=== PATIENT | female | born 1945 | race Caucasian/White ===

== ENCOUNTER 2018-12-20 12:54 | Emergency (ER) | payer MEDICARE, MEDICAID ==
[~2018-12-20] VITALS: Ht 167.6 cm; Wt 80.8 kg
[~2018-12-20 12:54] MED LIST: ALBU8HFA PO; AMLO2.5T4 PO; ATOR40TA PO; ESOM5SUS PO; FLUO20CA39 PO; IRON18TA PO; LEVO75TA57 PO; LISI-600 PO; MORP60CA18 PO; VIT1CAPS46 PO; ZOLP-183 PO
[2018-12-20 13:14] VITALS: BP 144/79
[2018-12-20] MEDS ORDERED: acetaminophen 325mg tablet PO ONE (13:35)
--- NOTE | 2018-12-20 13:46 | NUR ---
UNABLE TO PROVIDE URINE AT THIS TIME, WATER TO DRINK GIVEN
[2018-12-20 14:27] LABS: BASOPHILS # (AUTO) 0.1 X10'3 (0-0.2); BASOPHILS % (AUTO) 0.9 % (0-1); EOSINOPHILS # (AUTO) 0.2 X10'3 (0-0.9); EOSINOPHILS % (AUTO) 3.8 % (0-6); HEMATOCRIT 35.6 % (35.0-45.0); HEMOGLOBIN 12.4 g/dl (12.0-16.0); LYMPHOCYTES # (AUTO) 0.9 X10'3 (1.1-4.8); LYMPHOCYTES % (AUTO) 14.6 % (21-51); MEAN CORPUSCULAR HEMOGLOBIN 31.8 PG (27.0-31.0); MEAN CORPUSCULAR HGB CONC 34.8 g/dL (33.0-36.5); MEAN CORPUSCULAR VOLUME 91.4 FL (78-98); MEAN PLATELET VOLUME 9.6 FL (7.4-10.4); MONOCYTES # (AUTO) 0.5 X10'3 (0-0.9); MONOCYTES % (AUTO) 7.7 % (2-12); NEUTROPHILS # (AUTO) 4.5 X10'3 (1.8-7.7); PLATELET COUNT 204 X10'3 (140-440); RED BLOOD COUNT 3.89 X10'6 (4.20-5.60); RED CELL DISTRIBUTION WIDTH 13.4 % (11.5-14.5); WHITE BLOOD COUNT 6.1 X10'3 (4.5-11.0)
[2018-12-20 14:32] LABS: PARTIAL THROMBOPLASTIN TIME 29 SECONDS (22-32)
--- NOTE | 2018-12-20 14:42 | NUR ---
unable to provide urine, more water provided, requeste to wait on straight cath
[2018-12-20 14:44] LABS: ALANINE AMINOTRANSFERASE 26 U/L (12-78); ALBUMIN 4.1 G/DL (3.4-5.0); ALBUMIN/GLOBULIN RATIO 1.3 (1.1-1.5); ALKALINE PHOSPHATASE 80 IU/L (46-116); ANION GAP 9 (8-16); ASPARTATE AMINO TRANSFERASE 17 U/L (10-37); BILIRUBIN,TOTAL 0.4 MG/DL (0.1-1.0); BLOOD UREA NITROGEN 26 MG/DL (7-18); BUN/CREATININE RATIO 20.5 (6.6-38.0); CALCIUM 9.5 MG/DL (8.5-10.1); CHLORIDE 108 MMOL/L (99-107); CREATININE 1.27 MG/DL (0.40-0.90); GLUCOSE 96 MG/DL (70-104); MAGNESIUM 2.2 MG/DL (1.5-2.4); POTASSIUM 4.1 MMOL/L (3.5-5.1); SODIUM 144 MMOL/L (135-145); TOTAL CARBON DIOXIDE 26.7 MMOL/L (24-32); TOTAL PROTEIN 7.3 G/DL (6.4-8.2); eGFR 41 ML/MIN
[2018-12-20 15:36] LABS: CLARITY,URINE CLOUDY (Clear); COLOR,URINE YELLOW (Yellow); GLUCOSE, URINE NEGATIVE (Neg); KETONES,URINE NEGATIVE (Neg); LEUKOCYTE ESTERASE ,URINE LARGE (Neg); NITRITES, URINE NEGATIVE (Neg); OCCULT BLOOD,URINE TRACE-INTACT (Neg); PROTEIN,URINE TRACE mg/dl (Neg); UA COLLECTION TYPE CLN CATCH MIDSTREAM; UROBILINOGEN,URINE 0.2 E.U/dL (0.2-1.0)
--- NOTE | 2018-12-20 15:45 | NUR ---
JYOTHI U/S IN ROOM
[2018-12-20 15:48] LABS: BACTERIA,URINE 3+ /HPF (Neg); MUCUS STRANDS FEW /LPF (Neg); RBC,URINE 0-2 /HPF (0-2); RENAL CELLS, URINE MANY /HPF; SQUAMOUS EPITHELIAL CELL,UR MANY /LPF (FEW); WBC CLUMPS,URINE MODERATE /HPF (NEGATIVE); WBC,URINE 50-100 /HPF (0-4)
[2018-12-20] MEDS ORDERED: CIPR-230 PO (16:14)
[2018-12-20] MEDS ORDERED: CefTRIAXone 1000mg IM Kit (w/lidocaine diluent) IM ONE (16:15)
[2018-12-20] MEDS ORDERED: ciprofloxacin 250mg tablet PO ONE (16:15)
== END 2018-12-20 16:42 | disposition home or self-care (01) ==
LOC: ER 12:55
DX: N39.0 Urinary tract infection, site not specified (principal); M79.604 Pain in right leg; E78.00 Pure hypercholesterolemia, unspecified; I10 Essential (primary) hypertension; K21.9 Gastro-esophageal reflux disease without esophagitis; E07.9 Disorder of thyroid, unspecified; F31.9 Bipolar disorder, unspecified; Z90.710 Acquired absence of both cervix and uterus; Z88.5 Allergy status to narcotic agent; Z79.899 Other long term (current) drug therapy; Z88.8 Allergy status to other drugs, medicaments and biological substances; Z79.2 Long term (current) use of antibiotics; Z98.890 Other specified postprocedural states
CPT/HCPCS: 36415; 71045; 80053; 81001; 83605; 83735; 84145; 85025; 85610; 85730; 87040; 93005; 93971; 96372; 99284; J0696

== ENCOUNTER 2019-05-20 17:38 | Emergency (ER) | payer MEDICARE, MEDICAID ==
[~2019-05-20] VITALS: Ht 167.6 cm; Wt 82.0 kg
[2019-05-20 18:18] LABS: BASOPHILS # (AUTO) 0.1 X10'3 (0-0.2); BASOPHILS % (AUTO) 0.9 % (0-1); EOSINOPHILS # (AUTO) 0.3 X10'3 (0-0.9); EOSINOPHILS % (AUTO) 5.3 % (0-6); HEMOGLOBIN 11.7 g/dl (12.0-16.0); LYMPHOCYTES # (AUTO) 1.2 X10'3 (1.1-4.8); LYMPHOCYTES % (AUTO) 18.7 % (21-51); MEAN CORPUSCULAR HEMOGLOBIN 32.4 PG (27.0-31.0); MEAN CORPUSCULAR HGB CONC 35.5 g/dL (33.0-36.5); MEAN CORPUSCULAR VOLUME 91.4 FL (78-98); MEAN PLATELET VOLUME 8.9 FL (7.4-10.4); MONOCYTES # (AUTO) 0.6 X10'3 (0-0.9); MONOCYTES % (AUTO) 9.8 % (2-12); NEUTROPHILS # (AUTO) 4.1 X10'3 (1.8-7.7); NEUTROPHILS % (AUTO) 65.3 % (42-75); PLATELET COUNT 195 X10'3 (140-440); RED BLOOD COUNT 3.61 X10'6 (4.20-5.60); RED CELL DISTRIBUTION WIDTH 13.2 % (11.5-14.5); WHITE BLOOD COUNT 6.2 X10'3 (4.5-11.0)
[2019-05-20 18:32] LABS: ALANINE AMINOTRANSFERASE 31 U/L (12-78); ALBUMIN 4.1 G/DL (3.4-5.0); ALBUMIN/GLOBULIN RATIO 1.4 (1.1-1.5); ALKALINE PHOSPHATASE 87 IU/L (46-116); ANION GAP 7 (8-16); ASPARTATE AMINO TRANSFERASE 19 U/L (10-37); BILIRUBIN,TOTAL 0.3 MG/DL (0.1-1.0); BLOOD UREA NITROGEN 37 MG/DL (7-18); BUN/CREATININE RATIO 28.9 (6.6-38.0); CALCIUM 9.5 MG/DL (8.5-10.1); CHLORIDE 107 MMOL/L (99-107); CREATININE 1.28 MG/DL (0.40-0.90); GLUCOSE 95 MG/DL (70-104); POTASSIUM 3.8 MMOL/L (3.5-5.1); SODIUM 143 MMOL/L (135-145); TOTAL CARBON DIOXIDE 29.3 MMOL/L (24-32); eGFR 41 ML/MIN
[2019-05-20 18:39] LABS: MAGNESIUM 2.4 MG/DL (1.5-2.4)
[2019-05-20] MEDS ORDERED: normal saline 1000ML IV soln IVB ONE (19:10)
[2019-05-20] MEDS ORDERED: iohexol 350MG/ML 100ml bottle IV ONE (19:12)
--- NOTE | 2019-05-20 19:18 | NUR ---
PT TO HAVE CT W/CONTRAST FOR POSS PE. AWAITING PIV PLACEMENT. PT WITH STABLE VS AND RA SATS 98%, RR 18 AND UNLABORED. SHE REPROTS SHE FEEL SOB JUST LYING IN THE GURNEY. 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 OVER THE PAST 3 WEEKS HAS BEEN HAVING INCREASED PAIN IN THIS AREA.
[2019-05-20 20:34] VITALS: BP 139/72
== END 2019-05-20 20:40 | disposition home or self-care (01) ==
LOC: ER 17:38
DX: R06.02 Shortness of breath (principal); R07.89 Other chest pain; R53.83 Other fatigue; E78.00 Pure hypercholesterolemia, unspecified; I10 Essential (primary) hypertension; K21.9 Gastro-esophageal reflux disease without esophagitis; Z98.890 Other specified postprocedural states; Z90.710 Acquired absence of both cervix and uterus; Z88.8 Allergy status to other drugs, medicaments and biological substances; Z88.5 Allergy status to narcotic agent; Z79.899 Other long term (current) drug therapy
CPT/HCPCS: 36415; 71045; 71275; 80053; 83735; 83880; 84484; 85025; 85379; 93005; 99284; J7030; Q9967

== ENCOUNTER 2020-05-21 20:03 | Emergency (ER) | payer MEDICARE, MEDICAID ==
[~2020-05-21] VITALS: Ht 167.6 cm; Wt 77.2 kg
[2020-05-21] MEDS ORDERED: meclizine 12.5mg tablet PO ONE (20:30)
--- NOTE | 2020-05-21 20:47 | NUR ---
yossi reports having vertigo 30 years ago reports feeling the same
[2020-05-21 21:19] LABS: ALANINE AMINOTRANSFERASE 31 U/L (12-78); ALBUMIN 4.1 G/DL (3.4-5.0); ALBUMIN/GLOBULIN RATIO 1.3 (1.1-1.5); ALKALINE PHOSPHATASE 66 IU/L (46-116); ANION GAP 8 (8-16); ASPARTATE AMINO TRANSFERASE 23 U/L (10-37); BASOPHILS % (AUTO) 0.7 % (0-1); BILIRUBIN,TOTAL 0.5 MG/DL (0.1-1.0); BLOOD UREA NITROGEN 30 MG/DL (7-18); CHLORIDE 105 MMOL/L (99-107); EOSINOPHILS # (AUTO) 0.1 X10'3 (0-0.9); EOSINOPHILS % (AUTO) 2.5 % (0-6); GLUCOSE 104 MG/DL (70-104); HEMATOCRIT 32.6 % (35.0-45.0); HEMOGLOBIN 11.5 g/dl (12.0-16.0); LYMPHOCYTES # (AUTO) 1.1 X10'3 (1.1-4.8); LYMPHOCYTES % (AUTO) 19.3 % (21-51); MEAN CORPUSCULAR HEMOGLOBIN 33.1 PG (27.0-31.0); MEAN CORPUSCULAR HGB CONC 35.4 g/dL (33.0-36.5); MEAN CORPUSCULAR VOLUME 93.7 FL (78-98); MEAN PLATELET VOLUME 8.9 FL (7.4-10.4); MONOCYTES # (AUTO) 0.5 X10'3 (0-0.9); MONOCYTES % (AUTO) 8.5 % (2-12); PLATELET COUNT 219 X10'3 (140-440); POTASSIUM 3.5 MMOL/L (3.5-5.1); RED BLOOD COUNT 3.48 X10'6 (4.20-5.60); RED CELL DISTRIBUTION WIDTH 13.4 % (11.5-14.5); SODIUM 141 MMOL/L (135-145); TOTAL CARBON DIOXIDE 28.1 MMOL/L (24-32); TOTAL PROTEIN 7.2 G/DL (6.4-8.2); WHITE BLOOD COUNT 5.9 X10'3 (4.5-11.0); eGFR 44 ML/MIN
[2020-05-21] MEDS ORDERED: proMETHazine 25mg tablet PO ONE (21:25)
[2020-05-21] MEDS ORDERED: ONDA4TAB12 PO (21:48)
[2020-05-21] MEDS ORDERED: MECL-159 PO (21:48)
[2020-05-21 21:59] VITALS: BP 167/58
== END 2020-05-21 22:00 | disposition home or self-care (01) ==
LOC: ER 20:04
DX: R42 Dizziness and giddiness (principal); R11.2 Nausea with vomiting, unspecified; E78.00 Pure hypercholesterolemia, unspecified; I10 Essential (primary) hypertension; K21.9 Gastro-esophageal reflux disease without esophagitis; E07.89 Other specified disorders of thyroid; F31.9 Bipolar disorder, unspecified; Z88.5 Allergy status to narcotic agent; Z88.8 Allergy status to other drugs, medicaments and biological substances; Z79.899 Other long term (current) drug therapy
CPT/HCPCS: 36415; 71045; 80053; 83880; 84484; 85025; 93005; 99285; J8597; Q0169

== ENCOUNTER 2021-08-29 14:13 | Emergency (ER) | payer BC, MEDICAID ==
[~2021-08-29] VITALS: Ht 167.6 cm; Wt 72.7 kg
[~2021-08-29 14:13] MED LIST changes: -LISI-600 PO; +LISI20TA28 PO; +MECL-159 PO; +ONDA4TAB12 PO
[2021-08-29 14:25] VITALS: BP 120/65
[2021-08-29 15:02] LABS: BASOPHILS # (AUTO) 0.1 X10'3 (0-0.2); EOSINOPHILS # (AUTO) 0.2 X10'3 (0-0.9); EOSINOPHILS % (AUTO) 2.5 % (0-6); HEMATOCRIT 34.4 % (35.0-45.0); HEMOGLOBIN 11.7 g/dl (12.0-16.0); LYMPHOCYTES # (AUTO) 1.2 X10'3 (1.1-4.8); LYMPHOCYTES % (AUTO) 18.7 % (21-51); MEAN CORPUSCULAR HEMOGLOBIN 31.1 PG (27.0-31.0); MEAN CORPUSCULAR HGB CONC 33.9 g/dL (33.0-36.5); MEAN CORPUSCULAR VOLUME 91.8 FL (78-98); MEAN PLATELET VOLUME 8.9 FL (7.4-10.4); MONOCYTES # (AUTO) 0.7 X10'3 (0-0.9); NEUTROPHILS # (AUTO) 4.3 X10'3 (1.8-7.7); NEUTROPHILS % (AUTO) 66.8 % (42-75); PLATELET COUNT 227 X10'3 (140-440); RED BLOOD COUNT 3.75 X10'6 (4.20-5.60); RED CELL DISTRIBUTION WIDTH 13.5 % (11.5-14.5); WHITE BLOOD COUNT 6.4 X10'3 (4.5-11.0)
[2021-08-29 15:15] LABS: ANION GAP 10 (8-16); BLOOD UREA NITROGEN 38 MG/DL (7-18); CHLORIDE 102 MMOL/L (99-107); CREATININE 1.17 MG/DL (0.40-0.90); GLUCOSE 103 MG/DL (70-104); POTASSIUM 3.9 MMOL/L (3.5-5.1); SODIUM 139 MMOL/L (135-145)
[2021-08-29 15:16] LABS: ALANINE AMINOTRANSFERASE 25 U/L (12-78); ALBUMIN 4.1 G/DL (3.4-5.0); ALBUMIN/GLOBULIN RATIO 1.2 (1.1-1.5); ALKALINE PHOSPHATASE 76 IU/L (46-116); ASPARTATE AMINO TRANSFERASE 21 U/L (10-37); BILIRUBIN,TOTAL 0.4 MG/DL (0.1-1.0); BUN/CREATININE RATIO 32.5 (6.6-38.0); TOTAL PROTEIN 7.4 G/DL (6.4-8.2); eGFR 45 ML/MIN
== END 2021-08-29 15:30 | disposition left against medical advice (07) ==
LOC: ER 14:13
DX: R53.1 Weakness (principal); Z53.21 Procedure and treatment not carried out due to patient leaving prior to being seen by health care provider
CPT/HCPCS: 36415; 71045; 80053; 83880; 84484; 85025; 93005

== ENCOUNTER 2021-09-20 16:28 | Emergency (ER) | payer BC, MEDICAID ==
[~2021-09-20] VITALS: Ht 167.6 cm; Wt 77.3 kg
[2021-09-20 16:58] LABS: BASOPHILS # (AUTO) 0.1 X10'3 (0-0.2); BASOPHILS % (AUTO) 0.9 % (0-1); EOSINOPHILS # (AUTO) 0.2 X10'3 (0-0.9); EOSINOPHILS % (AUTO) 3.1 % (0-6); HEMATOCRIT 34.6 % (35.0-45.0); LYMPHOCYTES # (AUTO) 1.4 X10'3 (1.1-4.8); LYMPHOCYTES % (AUTO) 20.4 % (21-51); MEAN CORPUSCULAR HEMOGLOBIN 32.5 PG (27.0-31.0); MEAN CORPUSCULAR HGB CONC 34.7 g/dL (33.0-36.5); MEAN CORPUSCULAR VOLUME 93.7 FL (78-98); MEAN PLATELET VOLUME 8.3 FL (7.4-10.4); MONOCYTES # (AUTO) 0.7 X10'3 (0-0.9); MONOCYTES % (AUTO) 10.2 % (2-12); NEUTROPHILS # (AUTO) 4.4 X10'3 (1.8-7.7); NEUTROPHILS % (AUTO) 65.4 % (42-75); PLATELET COUNT 223 X10'3 (140-440); RED BLOOD COUNT 3.69 X10'6 (4.20-5.60); RED CELL DISTRIBUTION WIDTH 13.7 % (11.5-14.5); WHITE BLOOD COUNT 6.7 X10'3 (4.5-11.0)
[2021-09-20 17:15] LABS: ALANINE AMINOTRANSFERASE 33 U/L (12-78); ALBUMIN 4.3 G/DL (3.4-5.0); ALBUMIN/GLOBULIN RATIO 1.3 (1.1-1.5); ALKALINE PHOSPHATASE 69 IU/L (46-116); ANION GAP 10 (8-16); ASPARTATE AMINO TRANSFERASE 24 U/L (10-37); BILIRUBIN,TOTAL 0.5 MG/DL (0.1-1.0); BLOOD UREA NITROGEN 33 MG/DL (7-18); BUN/CREATININE RATIO 29.2 (6.6-38.0); CALCIUM 10.1 MG/DL (8.5-10.1); CHLORIDE 102 MMOL/L (99-107); CREATININE 1.13 MG/DL (0.40-0.90); GLUCOSE 101 MG/DL (70-104); POTASSIUM 3.9 MMOL/L (3.5-5.1); SODIUM 140 MMOL/L (135-145); TOTAL CARBON DIOXIDE 28.3 MMOL/L (24-32); TOTAL PROTEIN 7.5 G/DL (6.4-8.2); eGFR 47 ML/MIN
[2021-09-20 19:55] VITALS: BP 165/85
== END 2021-09-20 19:57 | disposition home or self-care (01) ==
LOC: ER 16:28
DX: R06.09 Other forms of dyspnea (principal); R05.9 Cough, unspecified; R07.89 Other chest pain; R06.02 Shortness of breath; E78.00 Pure hypercholesterolemia, unspecified; I10 Essential (primary) hypertension; K21.9 Gastro-esophageal reflux disease without esophagitis; G89.29 Other chronic pain; F31.9 Bipolar disorder, unspecified; Z90.710 Acquired absence of both cervix and uterus; Z98.890 Other specified postprocedural states; Z88.8 Allergy status to other drugs, medicaments and biological substances; Z79.899 Other long term (current) drug therapy
CPT/HCPCS: 36415; 71045; 80053; 83880; 84484; 85025; 93005; 99285

== ENCOUNTER 2021-10-25 11:30 | Emergency (ER) | payer BC, MEDICAID ==
[~2021-10-25] VITALS: Ht 167.6 cm; Wt 81.4 kg
[2021-10-25] MEDS ORDERED: ketorolac trometh. 30mg/ml inj. IM ONE (13:10)
[2021-10-25 13:41] VITALS: BP 137/89
== END 2021-10-25 13:48 | disposition home or self-care (01) ==
LOC: ER 11:31
DX: M54.30 Sciatica, unspecified side (principal); I10 Essential (primary) hypertension; K21.9 Gastro-esophageal reflux disease without esophagitis; G89.29 Other chronic pain; E78.00 Pure hypercholesterolemia, unspecified; F31.9 Bipolar disorder, unspecified; Z90.710 Acquired absence of both cervix and uterus; Z98.890 Other specified postprocedural states; Z88.8 Allergy status to other drugs, medicaments and biological substances; Z79.899 Other long term (current) drug therapy
CPT/HCPCS: 96372; 99283; J1885

== ENCOUNTER 2021-10-27 14:33 | Emergency (ER) | payer BC, MEDICAID ==
[~2021-10-27] VITALS: Ht 167.6 cm; Wt 79.5 kg
[2021-10-27 14:56] VITALS: BP 122/53
[2021-10-27] MEDS ORDERED: orphenadrine citrate 60mg/2ml inj. IM ONE (16:30)
[2021-10-27] MEDS ORDERED: morphine 10mg/ml inj. IM ONE (16:30)
[2021-10-27] MEDS ORDERED: LIDO30CR47 TOP (16:58)
[2021-10-27] MEDS ORDERED: TIZA-189 PO (16:58)
[2021-10-27] MEDS ORDERED: TRAM50TA2 PO ×2 (16:58→17:00)
== END 2021-10-27 17:22 | disposition home or self-care (01) ==
LOC: ER 14:33
DX: S39.012A Strain of muscle, fascia and tendon of lower back, initial encounter (principal); N28.89 Other specified disorders of kidney and ureter; M54.50 Low back pain, unspecified; R21 Rash and other nonspecific skin eruption; E78.00 Pure hypercholesterolemia, unspecified; I10 Essential (primary) hypertension; K21.9 Gastro-esophageal reflux disease without esophagitis; G89.29 Other chronic pain; F31.9 Bipolar disorder, unspecified; Z90.710 Acquired absence of both cervix and uterus; Z98.890 Other specified postprocedural states; Z88.8 Allergy status to other drugs, medicaments and biological substances; Z79.899 Other long term (current) drug therapy; X58.XXXA Exposure to other specified factors, initial encounter; Y93.89 Activity, other specified; Y92.89 Other specified places as the place of occurrence of the external cause; Y99.8 Other external cause status
CPT/HCPCS: 72131; 96372; 99284; J2360

== ENCOUNTER 2023-03-06 16:22 | Observation (INO) | payer BC, MEDICAID ==
[~2023-03-06] VITALS: Ht 167.6 cm; Wt 77.3 kg
[~2023-03-06 16:22] MED LIST changes: +LIDO30CR47 TOP; -MECL-159 PO; +MECL-302 PO; +TIZA-189 PO; +TRAM50TA2 PO
[2023-03-06 17:34] LABS: BASOPHILS # (AUTO) 0.1 X10'3 (0-0.2); BASOPHILS % (AUTO) 0.8 % (0-1); EOSINOPHILS # (AUTO) 0.2 X10'3 (0-0.9); EOSINOPHILS % (AUTO) 2.2 % (0-6); HEMATOCRIT 34.9 % (35.0-45.0); LYMPHOCYTES # (AUTO) 1.1 X10'3 (1.1-4.8); LYMPHOCYTES % (AUTO) 14.8 % (21-51); MEAN CORPUSCULAR HEMOGLOBIN 32.3 PG (27.0-31.0); MEAN CORPUSCULAR HGB CONC 34.4 g/dL (33.0-36.5); MEAN CORPUSCULAR VOLUME 93.9 FL (78-98); MEAN PLATELET VOLUME 8.7 FL (7.4-10.4); MONOCYTES # (AUTO) 0.8 X10'3 (0-0.9); MONOCYTES % (AUTO) 10.6 % (2-12); NEUTROPHILS # (AUTO) 5.1 X10'3 (1.8-7.7); NEUTROPHILS % (AUTO) 71.6 % (42-75); PLATELET COUNT 223 X10'3 (140-440); RED BLOOD COUNT 3.72 X10'6 (4.20-5.60); RED CELL DISTRIBUTION WIDTH 13.4 % (11.5-14.5); WHITE BLOOD COUNT 7.1 X10'3 (4.5-11.0)
[2023-03-06 17:48] LABS: ANION GAP 7 (8-16); CHLORIDE 101 MMOL/L (99-107); GLUCOSE 112 MG/DL (70-104); POTASSIUM 3.3 MMOL/L (3.5-5.1); SODIUM 136 MMOL/L (135-145); TOTAL CARBON DIOXIDE 28.2 MMOL/L (24-32)
[2023-03-06 17:49] LABS: ALANINE AMINOTRANSFERASE 30 U/L (12-78); ALBUMIN/GLOBULIN RATIO 1.3 (1.1-1.5); ALKALINE PHOSPHATASE 93 IU/L (46-116); ASPARTATE AMINO TRANSFERASE 22 U/L (10-37); BILIRUBIN,TOTAL 0.5 MG/DL (0.1-1.0); BLOOD UREA NITROGEN 28 MG/DL (7-18); BUN/CREATININE RATIO 23.5 (10.0-20.0); CALCIUM 10.1 MG/DL (8.5-10.1); CREATININE 1.19 MG/DL (0.40-0.90); eCRCL 37 ML/MIN; eGFR 44 ML/MIN
[2023-03-06 17:56] LABS: PRO BRAIN NATRIURETIC PEPTIDE 66 PG/ML (0-450)
[2023-03-06] MEDS ORDERED: nitroGLYCERIN 0.4mg/hour patch TD ONE (20:35)
[2023-03-06] MEDS ORDERED: nitroGLYCERIN 0.4mg SUBLingual tab SL PRN (20:35)
[2023-03-06] MEDS ORDERED: aspirin 81mg tab.chew PO ONE (20:35)
[2023-03-06] MEDS ORDERED: enoxaparin 100mg/ml syringe SUBCUT ONE (22:00)
[2023-03-06 22:53] LABS: APTT 23 SECONDS (22-32); INR 0.9 INR; PROTHROMBIN TIME 10.2 SECONDS (9.0-12.0)
[2023-03-07] VITALS (10 sets, daily range): BP systolic 107–167; BP diastolic 47–132; PULSE 65–85; RESP 10–18; TEMP 97.4–98.1; O2SAT 94–100
--- NOTE | 2023-03-07 00:06 | NUR ---
PT PLACED IN HOSP BED, GAVE WARM BLANKETS, REPOSITIONED FOR COMFORT, AND IN NAD
[2023-03-07] MEDS ORDERED: PERFLUTREN PROTEIN-A MICROSPHR (Optison) 0.22 MG/ML 3ML VIAL IV ONE (01:20)
[2023-03-07] MEDS ORDERED: magnesium hydroxide 30ml (MOM) UD suspension PO PRN (01:20)
[2023-03-07] MEDS ORDERED: acetaminophen 325mg tablet PO PRN (01:20)
[2023-03-07] MEDS ORDERED: mag hydrox/Alum hydrox/simeth 30ml oral suspension PO PRN (01:20)
[2023-03-07] MEDS ORDERED: magnesium 4gm in 100ml NS 100 ML IV PRN (01:20)
[2023-03-07] MEDS ORDERED: magnesium 2GM in 50ml NS 50 ML IV PRN (01:20)
[2023-03-07] MEDS ORDERED: potassium Cl 40MEQ/1/2NS 520ml 520 ML IV PRN (01:20)
[2023-03-07] MEDS ORDERED: potassium Cl 20 mEq SR tablet PO PRN ×2 (01:20)
[2023-03-07] MEDS ORDERED: ondansetron/PF 4mg/2ml inj IV PRN (01:20)
[2023-03-07] MEDS ORDERED: magnesium Cl slow-release 64mg tablet PO PRN (01:20)
[2023-03-07] MEDS ORDERED: traZODone 150mg tablet PO ONE (01:25)
[2023-03-07] MEDS ORDERED: docusate sod 100mg capsule PO SCH (08:00)
[2023-03-07] MEDS ORDERED: K and/or MAG REPLACEMENT MC SCH (08:00)
[2023-03-07] MEDS ORDERED: pantoprazole 40MG/NS 100ML BAG 100 ML IV SCH (08:00)
[2023-03-07] MEDS ORDERED: heparin, porcine 5000 units/ml vial SQ SCH (08:00)
[2023-03-07 08:11] LABS: MAGNESIUM 2.3 MG/DL (1.5-2.4); POTASSIUM 3.5 MMOL/L (3.5-5.1)
[2023-03-07] MEDS ORDERED: aminophylline 250mg/10ml inj. IV PRN (08:15)
[2023-03-07] MEDS ORDERED: nitroGLYCERIN 0.4mg SUBLingual tab SL PRN (08:15)
[2023-03-07] MEDS ORDERED: metoprolol tartrate 1mg/ml inj IV PRN (08:15)
[2023-03-07] MEDS ORDERED: regadenoson 0.4mg/5ml syringe IV PRN (08:15)
[2023-03-07] MEDS ORDERED: LAMO25TA72 PO (10:11)
[2023-03-07] MEDS ORDERED: TRAZ150T78 PO ×2 (10:15→10:36)
[2023-03-07] MEDS ORDERED: LORA10TA7 PO (10:36)
[2023-03-07] MEDS ORDERED: ESTR10TA9 VG (10:36)
[2023-03-07] MEDS ORDERED: FAMO20TA8 PO (10:36)
[2023-03-07] MEDS ORDERED: LAMO25TA5 PO (10:36)
[2023-03-07] MEDS ORDERED: MELO-102 PO (10:36)
[2023-03-07] MEDS ORDERED: HYDR12.55 PO (10:36)
[2023-03-07] MEDS ORDERED: LIDO700A47 TOP (10:36)
[2023-03-07] MEDS ORDERED: LEVO75TA7 PO (10:36)
[2023-03-07] MEDS ORDERED: AMLO-708 PO (10:36)
[2023-03-07] MEDS ORDERED: DULO30CA52 PO (10:36)
[2023-03-07] MEDS ORDERED: ALBU6.7H14 IH (10:36)
[2023-03-07] MEDS ORDERED: ATOR40TA72 PO (10:36)
[2023-03-07] MEDS ORDERED: DICL50TA8 PO (10:36)
[2023-03-07] MEDS ORDERED: CYCL1DRO2 EACHEYE (10:36)
[2023-03-07] MEDS ORDERED: traZODone 150mg tablet PO PRN (14:25)
[2023-03-07] MEDS ORDERED: PANT-47 PO (15:45)
--- NOTE | 2023-03-07 16:20 | NUR ---
Discharge instructions discussed with pt and daughter. new medication and stopped medications discussed. Pt states she will follow up with her primary md as directed. All questions answered. Pt states she understands all instructions. Daughter at bedside helping pt get dressed. Pt states and insists she wants to walk out on her own power. Daughter will be at her side. Pt will leave hospital in private car to home.
[2023-03-08] MEDS ORDERED: amLODIPine 5mg tablet PO SCH (08:00)
[2023-03-08] MEDS ORDERED: atorvastatin 20mg tablet PO SCH (08:00)
[2023-03-08] MEDS ORDERED: lamoTRIgine 25mg tablet PO SCH (08:00)
[2023-03-08] MEDS ORDERED: HYDROchlorothiazide 12.5mg capsule PO SCH (08:00)
[2023-03-08] MEDS ORDERED: levoTHYROXINE 75mcg tablet PO SCH (08:00)
[2023-03-08 08:13] LABS: HBSAG SCREEN Negative (Negative); HEP B CORE AB, IGM Negative (Negative); HEP B CORE AB, TOT Negative (Negative)
== END 2023-03-07 16:43 | disposition home or self-care (01) ==
LOC: ER 16:22 → ED HOLD 03-07 01:20 → PCU 3S 03-07 09:22
PROVIDERS: ADMIT Internal Medicine; ATTEND Internal Medicine
DX: R07.89 Other chest pain (principal); K21.9 Gastro-esophageal reflux disease without esophagitis; I10 Essential (primary) hypertension; E78.5 Hyperlipidemia, unspecified; E78.00 Pure hypercholesterolemia, unspecified; E03.9 Hypothyroidism, unspecified; Z85.6 Personal history of leukemia; Z90.710 Acquired absence of both cervix and uterus; Z79.899 Other long term (current) drug therapy
CPT/HCPCS: 36415; 71045; 78452; 80053; 83735; 83880; 84132; 84484; 85025; 85610; 85730; 86704; 86705; 87081; 87340; 93005; 93017; 93306; 96365; 96372; 96375; 99285; A9500; C9113; G0378; J1644; J1650; J2405; J2785

== ENCOUNTER 2025-03-01 16:12 | Outpatient (CLI) | payer MEDICARE, MEDICAID ==
[~2025-03-01 16:12] MED LIST changes: +ALBU6.7H14 IH; -ALBU8HFA PO; +AMLO-708 PO; -AMLO2.5T4 PO; -ATOR40TA PO; +ATOR40TA72 PO; +CYCL1DRO2 EACHEYE; +DULO30CA52 PO; -ESOM5SUS PO; +ESTR10TA9 VG; +FAMO20TA8 PO; -FLUO20CA39 PO; +HYDR12.55 PO; -IRON18TA PO; +LAMO-24 PO; +LAMO25TA72 PO; -LEVO75TA57 PO; +LEVO75TA7 PO; -LIDO30CR47 TOP; +LIDO700A47 TOP; -LISI20TA28 PO; +LORA10TA7 PO; -MECL-302 PO; -MORP60CA18 PO; -ONDA4TAB12 PO; +PANT-47 PO; -TIZA-189 PO; -TRAM50TA2 PO; +TRAZ150T78 PO; -VIT1CAPS46 PO; -ZOLP-183 PO
--- NOTE | 2025-03-01 17:36 | RADIOLOGY REPORT ---
EXAM: MR MRI LOWER EXTREMITY RIGHT INDICATION: STRESS FRACTURE, RIGHT FIBULA, INIT ENCNTR FOR FRACTURE TECHNIQUE: Multiplanar, multisequence imaging of the right lower extremity/tibia /fibula COMPARISON: None FINDINGS: BONES: No MR evidence of an acute fracture, osseous contusion, or aggressive focal osseous lesion. In regards to the clinical question, no evidence of stress fracture plane. Small amount of possible medial anterior periosteal edema without underlying intra cortical signal or intramedullary signal. Finding is nonspecific and may be related to trace subcutaneous adipose tissue edema however differential includes medial tibial stress syndrome grade 1. 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 Consider dedicated MRI of the knee. MUSCLES: Consideration for muscle edema of the medial and lateral heads of the gastrocnemius which may reflect low-grade muscle strain versus other nonspecific myositis TENDONS: Intact. LIGAMENTS: Intact. JOINT SPACES: No joint effusion. NEUROVASCULAR: Normal. OTHER: None. IMPRESSION: 1. In regards to the clinical question, no evidence of stress fracture plane. 2. Small amount of possible medial anterior periosteal edema without underlying intra cortical signal or intramedullary signal. 3. Finding is nonspecific and may be related to trace subcutaneous adipose tissue edema however differential includes medial tibial stress syndrome grade 1. 4. Consideration for muscle edema of the medial and lateral heads of the gastrocnemius which may reflect low-grade muscle strain versus other nonspecific myositis.
== END 2025-03-01 23:59 | disposition home or self-care (01) ==
LOC: MRI02 16:12
PROVIDERS: ATTEND Family Medicine Sports Medicine
DX: R60.0 Localized edema (principal); M70.62 Trochanteric bursitis, left hip; M47.816 Spondylosis without myelopathy or radiculopathy, lumbar region; M53.3 Sacrococcygeal disorders, not elsewhere classified; M77.9 Enthesopathy, unspecified; M54.50 Low back pain, unspecified
CPT/HCPCS: 73718